=== PATIENT | female | born 1945 | race Caucasian/White ===

== ENCOUNTER 2025-02-26 15:53 | Inpatient (IN) | payer OTHER, MEDICAID ==
[2025-02-26 18:59] LABS: #Basophils Less than 0.03 10x3/uL (0.0-0.2); #Eosinophils Less than 0.03 10x3/uL (0.0-0.5); #Monocytes 0.46 10x3/uL (0.0-1.1); #Neutrophils 6.29 10x3/uL (1.5-8.4); %Basophils 0.2 % (0.0-2.0); %Eosinophils 0.1 % (0.0-6.0); %Lymphocytes 18.9 % (18.0-47.0); %Monocytes 5.5 % (0.0-10.0); %Neutrophils 74.8 % (40.0-75.0); Hematocrit 31.1 % (34.9-44.5); Hemoglobin 10.7 g/dL (12.0-15.5); Mean Corpuscular Hemoglobin 30.1 pg (27.0-33.0); Mean Corpuscular Volume 87.6 fL (81.6-98.3); Platelet Count 252 10x3/uL (150-450); Red Blood Cell (RBC) Count 3.55 10x6/uL (3.90-5.03); White Blood Cell (WBC) Count 8.41 10x3/uL (3.5-10.5)
[2025-02-26] MEDS: Ondansetron PF 4 MG/2 ML Vial ONE (19:00)
[2025-02-26] MEDS ORDERED: Acetaminophen 325 MG TAB PO PRN (19:04)
[2025-02-26 19:12] LABS: ALT (SGPT) Less than 7 U/L (Less than 34); AST (SGOT) 12 U/L (11-34); Albumin 3.2 g/dL (3.1-4.5); Alkaline Phosphatase 63 U/L (40-110); Anion Gap 15 mmol/L (10-20); BUN (Urea Nitrogen) 9 mg/dL (9.8-20.1); Bilirubin, Total 1.1 mg/dL (0.3-1.2); Calc. Creatinine Clearance 0 mL/min (70-130); Calcium 8.3 mg/dL (7.8-10.44); Carbon Dioxide 22 mmol/L (23-31); Chloride 103 mmol/L (98-107); Globulin 2.7 g/dL (2.4-3.5); Glucose 194 mg/dL (83-110); Magnesium 1.8 mg/dL (1.6-2.6); Sodium 138 mmol/L (136-145)
[2025-02-26 19:18] LABS: Troponin I 0.036 ng/mL (< 0.028)
[2025-02-26] MEDS: Magnesium 2 GM/50 ML(in water) 2 GM in Premix 1 BAG IVPB SCH (19:20)
[2025-02-26] MEDS: Potassium Chloride 10 MEQ in Premix 1 BAG IVPB SCH (19:30)
[2025-02-26 19:48] LABS: Potassium 2.3 mmol/L (3.5-5.1)
[2025-02-26] MEDS ORDERED: Famotidine/PF 20 mg/2ml Vial SLOW IVP PRN (21:00)
[2025-02-26] MEDS: Potassium Chloride 20 MEQ in Premix 1 BAG IVPB SCH (21:04)
[2025-02-26] MEDS: Mupirocin 1 GM TUBE TP SCH (21:04)
[2025-02-26] MEDS: Ondansetron PF 4 MG/2 ML Vial IVP PRN (21:05)
[2025-02-26] MEDS: Famotidine 20 MG TAB PO SCH (21:07)
[2025-02-27 01:49] LABS: Anion Gap 13 mmol/L (10-20); BUN (Urea Nitrogen) 8 mg/dL (9.8-20.1); Calc. Creatinine Clearance 68 mL/min (70-130); Calcium 8.5 mg/dL (7.8-10.44); Carbon Dioxide 25 mmol/L (23-31); Chloride 103 mmol/L (98-107); Glucose 145 mg/dL (83-110); Magnesium 2.5 mg/dL (1.6-2.6); Potassium 2.8 mmol/L (3.5-5.1); Sodium 138 mmol/L (136-145)
[2025-02-27] MEDS: Potassium Chloride 20 MEQ in Premix 1 BAG IVPB SCH (01:58)
[2025-02-27 05:21] LABS: #Basophils Less than 0.03 10x3/uL (0.0-0.2); #Eosinophils Less than 0.03 10x3/uL (0.0-0.5); #Monocytes 0.46 10x3/uL (0.0-1.1); #Neutrophils 5.66 10x3/uL (1.5-8.4); %Basophils 0.1 % (0.0-2.0); %Eosinophils 0.1 % (0.0-6.0); %Lymphocytes 22.1 % (18.0-47.0); %Monocytes 5.8 % (0.0-10.0); %Neutrophils 71.4 % (40.0-75.0); Hematocrit 31.1 % (34.9-44.5); Hemoglobin 10.6 g/dL (12.0-15.5); Mean Corpuscular Hemoglobin 30.8 pg (27.0-33.0); Mean Corpuscular Volume 90.4 fL (81.6-98.3); Platelet Count 216 10x3/uL (150-450); Red Blood Cell (RBC) Count 3.44 10x6/uL (3.90-5.03); White Blood Cell (WBC) Count 7.93 10x3/uL (3.5-10.5)
[2025-02-27 05:35] LABS: ALT (SGPT) Less than 7 U/L (Less than 34); AST (SGOT) 11 U/L (11-34); Albumin 3.1 g/dL (3.1-4.5); Alkaline Phosphatase 61 U/L (40-110); Anion Gap 10 mmol/L (10-20); BUN (Urea Nitrogen) 8 mg/dL (9.8-20.1); Bilirubin, Total 0.6 mg/dL (0.3-1.2); Calc. Creatinine Clearance 69 mL/min (70-130); Calcium 8.4 mg/dL (7.8-10.44); Carbon Dioxide 26 mmol/L (23-31); Chloride 105 mmol/L (98-107); Globulin 2.6 g/dL (2.4-3.5); Glucose 125 mg/dL (83-110); Potassium 3.3 mmol/L (3.5-5.1); Sodium 138 mmol/L (136-145)
[2025-02-27] MEDS: Enoxaparin 40 MG (0.4 mL) SYRINGE SC SCH (09:23)
[2025-02-27] MEDS: Spironolactone 25 MG TAB PO SCH (13:50)
[2025-02-27] MEDS: Magnesium 2 GM/50 ML(in water) 2 GM in Premix 1 BAG IVPB SCH (13:50)
[2025-02-27] MEDS: Mirtazapine 15 MG TAB PO SCH (21:25)
[2025-02-28 03:24] LABS: #Basophils Less than 0.03 10x3/uL (0.0-0.2); #Eosinophils 0.06 10x3/uL (0.0-0.5); #Monocytes 0.44 10x3/uL (0.0-1.1); #Neutrophils 4.64 10x3/uL (1.5-8.4); %Basophils 0.3 % (0.0-2.0); %Eosinophils 0.9 % (0.0-6.0); %Lymphocytes 24.3 % (18.0-47.0); %Monocytes 6.4 % (0.0-10.0); %Neutrophils 67.7 % (40.0-75.0); Hematocrit 32.6 % (34.9-44.5); Hemoglobin 10.8 g/dL (12.0-15.5); Mean Corpuscular Hemoglobin 30.7 pg (27.0-33.0); Mean Corpuscular Volume 92.6 fL (81.6-98.3); Platelet Count 230 10x3/uL (150-450); Red Blood Cell (RBC) Count 3.52 10x6/uL (3.90-5.03); White Blood Cell (WBC) Count 6.86 10x3/uL (3.5-10.5)
[2025-02-28 04:19] LABS: Anion Gap 12 mmol/L (10-20); BUN (Urea Nitrogen) 7 mg/dL (9.8-20.1); Calc. Creatinine Clearance 77 mL/min (70-130); Calcium 8.5 mg/dL (7.8-10.44); Carbon Dioxide 28 mmol/L (23-31); Chloride 104 mmol/L (98-107); Glucose 114 mg/dL (83-110); Magnesium 2.2 mg/dL (1.6-2.6); Potassium 2.9 mmol/L (3.5-5.1); Sodium 141 mmol/L (136-145)
[2025-02-28] MEDS: Potassium Chloride 20 MEQ in Premix 1 BAG IVPB SCH (04:43)
[2025-02-28] MEDS: Spironolactone 25 MG TAB PO SCH (09:41)
[2025-02-28 15:59] LABS: Potassium 3.6 mmol/L (3.5-5.1)
[2025-02-28 16:26] LABS: Free T4 (Free Thyroxine) 1.34 ng/dL (0.70-1.48); Thyroid Stimulating Hormone 0.8024 uIU/mL (0.35-4.94)
[2025-03-01 04:41] LABS: #Basophils Less than 0.03 10x3/uL (0.0-0.2); #Eosinophils 0.09 10x3/uL (0.0-0.5); #Monocytes 0.40 10x3/uL (0.0-1.1); #Neutrophils 3.77 10x3/uL (1.5-8.4); %Basophils 0.3 % (0.0-2.0); %Eosinophils 1.4 % (0.0-6.0); %Lymphocytes 31.4 % (18.0-47.0); %Monocytes 6.4 % (0.0-10.0); %Neutrophils 60.2 % (40.0-75.0); Hematocrit 34.8 % (34.9-44.5); Hemoglobin 11.1 g/dL (12.0-15.5); Mean Corpuscular Hemoglobin 30.3 pg (27.0-33.0); Mean Corpuscular Volume 95.1 fL (81.6-98.3); Platelet Count 193 10x3/uL (150-450); Red Blood Cell (RBC) Count 3.66 10x6/uL (3.90-5.03); White Blood Cell (WBC) Count 6.27 10x3/uL (3.5-10.5)
[2025-03-01 04:55] LABS: Anion Gap 10 mmol/L (10-20); BUN (Urea Nitrogen) 8 mg/dL (9.8-20.1); Calc. Creatinine Clearance 61 mL/min (70-130); Calcium 8.6 mg/dL (7.8-10.44); Carbon Dioxide 27 mmol/L (23-31); Chloride 106 mmol/L (98-107); Glucose 118 mg/dL (83-110); Potassium 3.9 mmol/L (3.5-5.1); Sodium 139 mmol/L (136-145)
[2025-03-01 07:58] LABS: Magnesium 1.8 mg/dL (1.6-2.6)
[2025-03-01] MEDS: Magnesium 2 GM/50 ML(in water) 2 GM in Premix 1 BAG IVPB SCH (09:10)
[2025-03-01] MEDS: Potassium Chloride 10 MEQ in Premix 1 BAG IVPB SCH (09:16)
[2025-03-01] MEDS: Carvedilol 6.25 MG TAB PO SCH (15:55)
[2025-03-01] MEDS: Losartan 25 MG TAB PO SCH (15:55)
[2025-03-02] MEDS ORDERED: Mag-Al Plus 1200/1200/120 MG (30 mL) UDCUP PO PRN (03:41)
[2025-03-02] MEDS: Scopolamine 1 mg/72 hour Patch TD SCH (04:22)
[2025-03-02 06:00] LABS: #Basophils 0.03 10x3/uL (0.0-0.2); #Eosinophils 0.12 10x3/uL (0.0-0.5); #Monocytes 0.45 10x3/uL (0.0-1.1); #Neutrophils 4.94 10x3/uL (1.5-8.4); %Basophils 0.4 % (0.0-2.0); %Eosinophils 1.7 % (0.0-6.0); %Lymphocytes 22.1 % (18.0-47.0); %Monocytes 6.3 % (0.0-10.0); %Neutrophils 69.2 % (40.0-75.0); Hematocrit 36.5 % (34.9-44.5); Hemoglobin 11.8 g/dL (12.0-15.5); Mean Corpuscular Hemoglobin 30.6 pg (27.0-33.0); Mean Corpuscular Volume 94.8 fL (81.6-98.3); Platelet Count 209 10x3/uL (150-450); Red Blood Cell (RBC) Count 3.85 10x6/uL (3.90-5.03); White Blood Cell (WBC) Count 7.14 10x3/uL (3.5-10.5)
[2025-03-02 06:20] LABS: Anion Gap 13 mmol/L (10-20); BUN (Urea Nitrogen) 9 mg/dL (9.8-20.1); Calc. Creatinine Clearance 58 mL/min (70-130); Calcium 9.1 mg/dL (7.8-10.44); Carbon Dioxide 24 mmol/L (23-31); Chloride 103 mmol/L (98-107); Glucose 124 mg/dL (83-110); Magnesium 1.9 mg/dL (1.6-2.6); Potassium 5.1 mmol/L (3.5-5.1); Sodium 135 mmol/L (136-145)
[2025-03-02] MEDS: Magnesium 2 GM/50 ML(in water) 2 GM in Premix 1 BAG IVPB SCH (08:47)
[2025-03-02] MEDS: Losartan 25 MG TAB PO SCH (08:49)
[2025-03-03 05:55] LABS: Anion Gap 11 mmol/L (10-20); BUN (Urea Nitrogen) 12 mg/dL (9.8-20.1); Calc. Creatinine Clearance 59 mL/min (70-130); Calcium 9.1 mg/dL (7.8-10.44); Carbon Dioxide 28 mmol/L (23-31); Chloride 100 mmol/L (98-107); Glucose 130 mg/dL (83-110); Iron 52 ug/dL (50-170); Iron Binding Capacity, Total 215 mcg/dL (265-497); Iron Binding Capacity, Total 216 mcg/dL (265-497); Magnesium 2.1 mg/dL (1.6-2.6); Potassium 4.2 mmol/L (3.5-5.1); Sodium 135 mmol/L (136-145)
[2025-03-03] MEDS: Promethazine HCl 25 MG, Admixture Fee 1 EACH in Sodium Chloride 0.9% 50 ML IVPB PRN ×2 (09:48→16:34)
[2025-03-03] MEDS: Sacubitril 24MG/Valsartan 26 MG TAB PO SCH (21:18)
[2025-03-04 05:40] LABS: #Basophils Less than 0.03 10x3/uL (0.0-0.2); #Eosinophils 0.08 10x3/uL (0.0-0.5); #Monocytes 0.35 10x3/uL (0.0-1.1); #Neutrophils 3.78 10x3/uL (1.5-8.4); %Basophils 0.3 % (0.0-2.0); %Eosinophils 1.4 % (0.0-6.0); %Lymphocytes 25.9 % (18.0-47.0); %Monocytes 6.1 % (0.0-10.0); %Neutrophils 66.1 % (40.0-75.0); Hematocrit 37.8 % (34.9-44.5); Hemoglobin 12.4 g/dL (12.0-15.5); Mean Corpuscular Hemoglobin 30.7 pg (27.0-33.0); Mean Corpuscular Volume 93.6 fL (81.6-98.3); Platelet Count 199 10x3/uL (150-450); Red Blood Cell (RBC) Count 4.04 10x6/uL (3.90-5.03); White Blood Cell (WBC) Count 5.72 10x3/uL (3.5-10.5)
[2025-03-04 05:56] LABS: ALT (SGPT) 12 U/L (Less than 34); AST (SGOT) 19 U/L (11-34); Albumin 3.4 g/dL (3.1-4.5); Alkaline Phosphatase 66 U/L (40-110); Anion Gap 13 mmol/L (10-20); BUN (Urea Nitrogen) 13 mg/dL (9.8-20.1); Bilirubin, Total 0.6 mg/dL (0.3-1.2); Calc. Creatinine Clearance 60 mL/min (70-130); Calcium 9.1 mg/dL (7.8-10.44); Carbon Dioxide 26 mmol/L (23-31); Chloride 101 mmol/L (98-107); Globulin 2.6 g/dL (2.4-3.5); Glucose 114 mg/dL (83-110); Magnesium 1.9 mg/dL (1.6-2.6); Potassium 4.3 mmol/L (3.5-5.1); Sodium 136 mmol/L (136-145)
[2025-03-04] MEDS ORDERED: cloNIDine 0.1 MG TAB PO PRN (11:33)
[2025-03-04] MEDS: cloNIDine 0.1 MG TAB PO SCH (11:52)
[2025-03-05 03:49] LABS: #Basophils Less than 0.03 10x3/uL (0.0-0.2); #Eosinophils 0.11 10x3/uL (0.0-0.5); #Monocytes 0.40 10x3/uL (0.0-1.1); #Neutrophils 4.08 10x3/uL (1.5-8.4); %Basophils 0.3 % (0.0-2.0); %Eosinophils 1.7 % (0.0-6.0); %Lymphocytes 28.2 % (18.0-47.0); %Monocytes 6.2 % (0.0-10.0); %Neutrophils 63.3 % (40.0-75.0); Hematocrit 37.2 % (34.9-44.5); Hemoglobin 12.0 g/dL (12.0-15.5); Mean Corpuscular Hemoglobin 30.2 pg (27.0-33.0); Mean Corpuscular Volume 93.7 fL (81.6-98.3); Platelet Count 217 10x3/uL (150-450); Red Blood Cell (RBC) Count 3.97 10x6/uL (3.90-5.03); White Blood Cell (WBC) Count 6.45 10x3/uL (3.5-10.5)
[2025-03-05 04:10] LABS: ALT (SGPT) 17 U/L (Less than 34); AST (SGOT) 23 U/L (11-34); Albumin 3.3 g/dL (3.1-4.5); Alkaline Phosphatase 64 U/L (40-110); Anion Gap 15 mmol/L (10-20); BUN (Urea Nitrogen) 15 mg/dL (9.8-20.1); Bilirubin, Total 0.6 mg/dL (0.3-1.2); Calc. Creatinine Clearance 57 mL/min (70-130); Calcium 9.2 mg/dL (7.8-10.44); Carbon Dioxide 24 mmol/L (23-31); Chloride 101 mmol/L (98-107); Globulin 2.8 g/dL (2.4-3.5); Glucose 125 mg/dL (83-110); Magnesium 1.7 mg/dL (1.6-2.6); Potassium 4.8 mmol/L (3.5-5.1); Sodium 135 mmol/L (136-145)
[2025-03-06 03:21] LABS: #Basophils Less than 0.03 10x3/uL (0.0-0.2); #Eosinophils 0.10 10x3/uL (0.0-0.5); #Monocytes 0.42 10x3/uL (0.0-1.1); #Neutrophils 3.61 10x3/uL (1.5-8.4); %Basophils 0.3 % (0.0-2.0); %Eosinophils 1.7 % (0.0-6.0); %Lymphocytes 30.8 % (18.0-47.0); %Monocytes 7.0 % (0.0-10.0); %Neutrophils 59.9 % (40.0-75.0); Hematocrit 35.3 % (34.9-44.5); Hemoglobin 11.6 g/dL (12.0-15.5); Mean Corpuscular Hemoglobin 30.7 pg (27.0-33.0); Mean Corpuscular Volume 93.4 fL (81.6-98.3); Platelet Count 203 10x3/uL (150-450); Red Blood Cell (RBC) Count 3.78 10x6/uL (3.90-5.03); White Blood Cell (WBC) Count 6.03 10x3/uL (3.5-10.5)
[2025-03-06 04:45] LABS: ALT (SGPT) 19 U/L (Less than 34); AST (SGOT) 25 U/L (11-34); Albumin 3.3 g/dL (3.1-4.5); Alkaline Phosphatase 63 U/L (40-110); Anion Gap 18 mmol/L (10-20); BUN (Urea Nitrogen) 16 mg/dL (9.8-20.1); Bilirubin, Total 0.6 mg/dL (0.3-1.2); Calc. Creatinine Clearance 62 mL/min (70-130); Calcium 9.0 mg/dL (7.8-10.44); Carbon Dioxide 22 mmol/L (23-31); Chloride 99 mmol/L (98-107); Globulin 2.6 g/dL (2.4-3.5); Glucose 107 mg/dL (83-110); Magnesium 1.7 mg/dL (1.6-2.6); Potassium 3.7 mmol/L (3.5-5.1); Sodium 135 mmol/L (136-145)
[2025-03-07 06:12] LABS: #Basophils 0.03 10x3/uL (0.0-0.2); #Eosinophils 0.08 10x3/uL (0.0-0.5); #Monocytes 0.42 10x3/uL (0.0-1.1); #Neutrophils 4.05 10x3/uL (1.5-8.4); %Basophils 0.4 % (0.0-2.0); %Eosinophils 1.2 % (0.0-6.0); %Lymphocytes 32.9 % (18.0-47.0); %Monocytes 6.1 % (0.0-10.0); %Neutrophils 59.0 % (40.0-75.0); Hematocrit 35.7 % (34.9-44.5); Hemoglobin 11.8 g/dL (12.0-15.5); Mean Corpuscular Hemoglobin 30.4 pg (27.0-33.0); Mean Corpuscular Volume 92.0 fL (81.6-98.3); Platelet Count 260 10x3/uL (150-450); Red Blood Cell (RBC) Count 3.88 10x6/uL (3.90-5.03); White Blood Cell (WBC) Count 6.87 10x3/uL (3.5-10.5)
[2025-03-07 06:40] LABS: ALT (SGPT) 22 U/L (Less than 34); AST (SGOT) 26 U/L (11-34); Albumin 3.4 g/dL (3.1-4.5); Alkaline Phosphatase 65 U/L (40-110); Anion Gap 17 mmol/L (10-20); BUN (Urea Nitrogen) 20 mg/dL (9.8-20.1); Bilirubin, Total 0.6 mg/dL (0.3-1.2); Calc. Creatinine Clearance 48 mL/min (70-130); Calcium 9.2 mg/dL (7.8-10.44); Carbon Dioxide 23 mmol/L (23-31); Chloride 97 mmol/L (98-107); Globulin 2.7 g/dL (2.4-3.5); Glucose 111 mg/dL (83-110); Magnesium 1.7 mg/dL (1.6-2.6); Potassium 4.1 mmol/L (3.5-5.1); Sodium 133 mmol/L (136-145)
[2025-03-08 04:44] LABS: #Basophils Less than 0.03 10x3/uL (0.0-0.2); #Eosinophils 0.06 10x3/uL (0.0-0.5); #Monocytes 0.49 10x3/uL (0.0-1.1); #Neutrophils 3.92 10x3/uL (1.5-8.4); %Basophils 0.3 % (0.0-2.0); %Eosinophils 1.0 % (0.0-6.0); %Lymphocytes 26.3 % (18.0-47.0); %Monocytes 8.0 % (0.0-10.0); %Neutrophils 63.9 % (40.0-75.0); Hematocrit 32.3 % (34.9-44.5); Hemoglobin 10.6 g/dL (12.0-15.5); Mean Corpuscular Hemoglobin 30.3 pg (27.0-33.0); Mean Corpuscular Volume 92.3 fL (81.6-98.3); Platelet Count 164 10x3/uL (150-450); Red Blood Cell (RBC) Count 3.50 10x6/uL (3.90-5.03); White Blood Cell (WBC) Count 6.13 10x3/uL (3.5-10.5)
[2025-03-08 05:12] LABS: ALT (SGPT) 16 U/L (Less than 34); AST (SGOT) 17 U/L (11-34); Albumin 3.0 g/dL (3.1-4.5); Alkaline Phosphatase 55 U/L (40-110); Anion Gap 14 mmol/L (10-20); BUN (Urea Nitrogen) 17 mg/dL (9.8-20.1); Bilirubin, Total 0.5 mg/dL (0.3-1.2); Calc. Creatinine Clearance 60 mL/min (70-130); Calcium 8.6 mg/dL (7.8-10.44); Carbon Dioxide 22 mmol/L (23-31); Chloride 101 mmol/L (98-107); Globulin 2.3 g/dL (2.4-3.5); Glucose 102 mg/dL (83-110); Potassium 3.4 mmol/L (3.5-5.1); Sodium 134 mmol/L (136-145)
[2025-03-08 14:07] VITALS: BMI 21.8
[2025-03-08] MEDS ORDERED: Electrolyte Replacement Protocol 1 EACH FS PRN (14:45)
[2025-03-08] MEDS: Magnesium 2 GM/50 ML(in water) 2 GM in Premix 1 BAG IVPB SCH (17:01)
[2025-03-08 20:45] LABS: Potassium 3.6 mmol/L (3.5-5.1)
[2025-03-09 04:52] LABS: #Basophils Less than 0.03 10x3/uL (0.0-0.2); #Eosinophils 0.08 10x3/uL (0.0-0.5); #Monocytes 0.40 10x3/uL (0.0-1.1); #Neutrophils 4.05 10x3/uL (1.5-8.4); %Basophils 0.3 % (0.0-2.0); %Eosinophils 1.3 % (0.0-6.0); %Lymphocytes 23.4 % (18.0-47.0); %Monocytes 6.7 % (0.0-10.0); %Neutrophils 68.1 % (40.0-75.0); Hematocrit 33.1 % (34.9-44.5); Hemoglobin 11.0 g/dL (12.0-15.5); Mean Corpuscular Hemoglobin 30.7 pg (27.0-33.0); Mean Corpuscular Volume 92.5 fL (81.6-98.3); Platelet Count 188 10x3/uL (150-450); Red Blood Cell (RBC) Count 3.58 10x6/uL (3.90-5.03); White Blood Cell (WBC) Count 5.95 10x3/uL (3.5-10.5)
[2025-03-09 05:10] LABS: ALT (SGPT) 13 U/L (Less than 34); AST (SGOT) 16 U/L (11-34); Albumin 3.2 g/dL (3.1-4.5); Alkaline Phosphatase 59 U/L (40-110); Anion Gap 12 mmol/L (10-20); BUN (Urea Nitrogen) 12 mg/dL (9.8-20.1); Bilirubin, Total 0.5 mg/dL (0.3-1.2); Calc. Creatinine Clearance 64 mL/min (70-130); Calcium 8.6 mg/dL (7.8-10.44); Carbon Dioxide 23 mmol/L (23-31); Chloride 100 mmol/L (98-107); Globulin 2.4 g/dL (2.4-3.5); Glucose 104 mg/dL (83-110); Magnesium 2.1 mg/dL (1.6-2.6); Potassium 3.9 mmol/L (3.5-5.1); Sodium 131 mmol/L (136-145)
[2025-03-10 05:23] LABS: #Basophils Less than 0.03 10x3/uL (0.0-0.2); #Eosinophils 0.13 10x3/uL (0.0-0.5); #Monocytes 0.40 10x3/uL (0.0-1.1); #Neutrophils 4.35 10x3/uL (1.5-8.4); %Basophils 0.3 % (0.0-2.0); %Eosinophils 1.9 % (0.0-6.0); %Lymphocytes 26.7 % (18.0-47.0); %Monocytes 6.0 % (0.0-10.0); %Neutrophils 64.8 % (40.0-75.0); Hematocrit 33.3 % (34.9-44.5); Hemoglobin 10.7 g/dL (12.0-15.5); Mean Corpuscular Hemoglobin 30.1 pg (27.0-33.0); Mean Corpuscular Volume 93.5 fL (81.6-98.3); Platelet Count 179 10x3/uL (150-450); Red Blood Cell (RBC) Count 3.56 10x6/uL (3.90-5.03); White Blood Cell (WBC) Count 6.71 10x3/uL (3.5-10.5)
[2025-03-10 05:37] LABS: ALT (SGPT) 12 U/L (Less than 34); AST (SGOT) 14 U/L (11-34); Albumin 3.1 g/dL (3.1-4.5); Alkaline Phosphatase 56 U/L (40-110); Anion Gap 14 mmol/L (10-20); BUN (Urea Nitrogen) 14 mg/dL (9.8-20.1); Bilirubin, Total 0.5 mg/dL (0.3-1.2); Calc. Creatinine Clearance 64 mL/min (70-130); Calcium 8.7 mg/dL (7.8-10.44); Carbon Dioxide 23 mmol/L (23-31); Chloride 100 mmol/L (98-107); Globulin 2.4 g/dL (2.4-3.5); Glucose 111 mg/dL (83-110); Potassium 3.8 mmol/L (3.5-5.1); Sodium 133 mmol/L (136-145)
[2025-03-10] MEDS: Magnesium Oxide 400 MG TAB PO SCH (09:34)
[2025-03-10 17:05] LABS: Magnesium 1.9 mg/dL (1.6-2.6)
[2025-03-10] MEDS: Magnesium 2 GM/50 ML(in water) 2 GM in Premix 1 BAG IVPB SCH (21:05)
[2025-03-11 05:41] LABS: #Basophils 0.04 10x3/uL (0.0-0.2); #Eosinophils 0.12 10x3/uL (0.0-0.5); #Monocytes 0.32 10x3/uL (0.0-1.1); #Neutrophils 3.10 10x3/uL (1.5-8.4); %Basophils 0.7 % (0.0-2.0); %Eosinophils 2.2 % (0.0-6.0); %Lymphocytes 32.8 % (18.0-47.0); %Monocytes 6.0 % (0.0-10.0); %Neutrophils 58.1 % (40.0-75.0); Hematocrit 33.4 % (34.9-44.5); Hemoglobin 10.8 g/dL (12.0-15.5); Mean Corpuscular Hemoglobin 30.3 pg (27.0-33.0); Mean Corpuscular Volume 93.6 fL (81.6-98.3); Platelet Count 159 10x3/uL (150-450); Red Blood Cell (RBC) Count 3.57 10x6/uL (3.90-5.03); White Blood Cell (WBC) Count 5.34 10x3/uL (3.5-10.5)
[2025-03-11 05:56] LABS: Anion Gap 13 mmol/L (10-20); BUN (Urea Nitrogen) 11 mg/dL (9.8-20.1); Calc. Creatinine Clearance 60 mL/min (70-130); Calcium 8.9 mg/dL (7.8-10.44); Carbon Dioxide 26 mmol/L (23-31); Chloride 100 mmol/L (98-107); Glucose 115 mg/dL (83-110); Magnesium 2.1 mg/dL (1.6-2.6); Potassium 5.1 mmol/L (3.5-5.1); Sodium 134 mmol/L (136-145)
[2025-03-11 06:27] VITALS: BMI 21.8
[2025-03-11] MEDS: Ondansetron PF 4 MG/2 ML Vial IVP PRN (13:36)
[2025-03-11 16:21] LABS: Magnesium 1.9 mg/dL (1.6-2.6)
[2025-03-11] MEDS: Ondansetron PF 4 MG/2 ML Vial IVP SCH (17:12)
[2025-03-11] MEDS: Magnesium 2 GM/50 ML(in water) 2 GM in Premix 1 BAG IVPB SCH (17:13)
[2025-03-11] MEDS: Sacubitril 24MG/Valsartan 26 MG TAB PO SCH (21:06)
[2025-03-12 05:01] LABS: #Basophils Less than 0.03 10x3/uL (0.0-0.2); #Eosinophils 0.11 10x3/uL (0.0-0.5); #Monocytes 0.37 10x3/uL (0.0-1.1); #Neutrophils 3.13 10x3/uL (1.5-8.4); %Basophils 0.4 % (0.0-2.0); %Eosinophils 2.0 % (0.0-6.0); %Lymphocytes 33.3 % (18.0-47.0); %Monocytes 6.8 % (0.0-10.0); %Neutrophils 57.3 % (40.0-75.0); Hematocrit 33.3 % (34.9-44.5); Hemoglobin 11.0 g/dL (12.0-15.5); Mean Corpuscular Hemoglobin 30.6 pg (27.0-33.0); Mean Corpuscular Volume 92.8 fL (81.6-98.3); Platelet Count 160 10x3/uL (150-450); Red Blood Cell (RBC) Count 3.59 10x6/uL (3.90-5.03); White Blood Cell (WBC) Count 5.46 10x3/uL (3.5-10.5)
[2025-03-12 05:20] LABS: Anion Gap 10 mmol/L (10-20); BUN (Urea Nitrogen) 9 mg/dL (9.8-20.1); Calc. Creatinine Clearance 53 mL/min (70-130); Calcium 8.7 mg/dL (7.8-10.44); Carbon Dioxide 25 mmol/L (23-31); Chloride 99 mmol/L (98-107); Glucose 132 mg/dL (83-110); Magnesium 2.3 mg/dL (1.6-2.6); Potassium 4.3 mmol/L (3.5-5.1); Sodium 130 mmol/L (136-145)
[2025-03-12] MEDS: Mirtazapine 15 MG TAB PO SCH (11:28)
[2025-03-13 05:03] LABS: #Basophils 0.03 10x3/uL (0.0-0.2); #Eosinophils 0.09 10x3/uL (0.0-0.5); #Monocytes 0.39 10x3/uL (0.0-1.1); #Neutrophils 3.70 10x3/uL (1.5-8.4); %Basophils 0.5 % (0.0-2.0); %Eosinophils 1.5 % (0.0-6.0); %Lymphocytes 30.0 % (18.0-47.0); %Monocytes 6.5 % (0.0-10.0); %Neutrophils 61.3 % (40.0-75.0); Hematocrit 32.9 % (34.9-44.5); Hemoglobin 10.8 g/dL (12.0-15.5); Mean Corpuscular Hemoglobin 30.4 pg (27.0-33.0); Mean Corpuscular Volume 92.7 fL (81.6-98.3); Platelet Count 146 10x3/uL (150-450); Red Blood Cell (RBC) Count 3.55 10x6/uL (3.90-5.03); White Blood Cell (WBC) Count 6.03 10x3/uL (3.5-10.5)
[2025-03-13 05:18] LABS: Anion Gap 11 mmol/L (10-20); BUN (Urea Nitrogen) 8 mg/dL (9.8-20.1); Calc. Creatinine Clearance 62 mL/min (70-130); Calcium 8.8 mg/dL (7.8-10.44); Carbon Dioxide 24 mmol/L (23-31); Chloride 103 mmol/L (98-107); Glucose 104 mg/dL (83-110); Potassium 4.3 mmol/L (3.5-5.1); Sodium 134 mmol/L (136-145)
[2025-03-13] MEDS: Mirtazapine 15 MG TAB PO SCH (14:08)
[2025-03-13 14:11] LABS: Magnesium 1.8 mg/dL (1.6-2.6)
[2025-03-13] MEDS: Magnesium 2 GM/50 ML(in water) 2 GM in Premix 1 BAG IVPB SCH (16:32)
[2025-03-14 04:02] LABS: #Basophils Less than 0.03 10x3/uL (0.0-0.2); #Eosinophils 0.11 10x3/uL (0.0-0.5); #Monocytes 0.32 10x3/uL (0.0-1.1); #Neutrophils 3.18 10x3/uL (1.5-8.4); %Basophils 0.4 % (0.0-2.0); %Eosinophils 2.1 % (0.0-6.0); %Lymphocytes 28.9 % (18.0-47.0); %Monocytes 6.3 % (0.0-10.0); %Neutrophils 62.1 % (40.0-75.0); Hematocrit 32.9 % (34.9-44.5); Hemoglobin 10.7 g/dL (12.0-15.5); Mean Corpuscular Hemoglobin 30.6 pg (27.0-33.0); Mean Corpuscular Volume 94.0 fL (81.6-98.3); Platelet Count 130 10x3/uL (150-450); Red Blood Cell (RBC) Count 3.50 10x6/uL (3.90-5.03); White Blood Cell (WBC) Count 5.12 10x3/uL (3.5-10.5)
[2025-03-14 04:13] LABS: Anion Gap 13 mmol/L (10-20); BUN (Urea Nitrogen) 7 mg/dL (9.8-20.1); Calc. Creatinine Clearance 69 mL/min (70-130); Calcium 8.4 mg/dL (7.8-10.44); Carbon Dioxide 20 mmol/L (23-31); Chloride 104 mmol/L (98-107); Glucose 88 mg/dL (83-110); Magnesium 2.3 mg/dL (1.6-2.6); Potassium 4.3 mmol/L (3.5-5.1); Sodium 133 mmol/L (136-145)
[2025-03-15 03:41] LABS: #Basophils Less than 0.03 10x3/uL (0.0-0.2); #Eosinophils 0.12 10x3/uL (0.0-0.5); #Monocytes 0.38 10x3/uL (0.0-1.1); #Neutrophils 2.76 10x3/uL (1.5-8.4); %Basophils 0.4 % (0.0-2.0); %Eosinophils 2.6 % (0.0-6.0); %Lymphocytes 29.7 % (18.0-47.0); %Monocytes 8.1 % (0.0-10.0); %Neutrophils 59.0 % (40.0-75.0); Hematocrit 34.2 % (34.9-44.5); Hemoglobin 11.0 g/dL (12.0-15.5); Mean Corpuscular Hemoglobin 30.1 pg (27.0-33.0); Mean Corpuscular Volume 93.4 fL (81.6-98.3); Platelet Count 134 10x3/uL (150-450); Red Blood Cell (RBC) Count 3.66 10x6/uL (3.90-5.03); White Blood Cell (WBC) Count 4.68 10x3/uL (3.5-10.5)
[2025-03-15 03:55] LABS: Anion Gap 9 mmol/L (10-20); BUN (Urea Nitrogen) 6 mg/dL (9.8-20.1); Calc. Creatinine Clearance 62 mL/min (70-130); Calcium 8.7 mg/dL (7.8-10.44); Carbon Dioxide 26 mmol/L (23-31); Chloride 103 mmol/L (98-107); Glucose 94 mg/dL (83-110); Potassium 4.4 mmol/L (3.5-5.1); Sodium 134 mmol/L (136-145)
[2025-03-16 05:30] LABS: #Basophils 0.03 10x3/uL (0.0-0.2); #Eosinophils 0.09 10x3/uL (0.0-0.5); #Monocytes 0.32 10x3/uL (0.0-1.1); #Neutrophils 2.76 10x3/uL (1.5-8.4); %Basophils 0.7 % (0.0-2.0); %Eosinophils 2.0 % (0.0-6.0); %Lymphocytes 28.0 % (18.0-47.0); %Monocytes 7.2 % (0.0-10.0); %Neutrophils 61.9 % (40.0-75.0); Hematocrit 31.3 % (34.9-44.5); Hemoglobin 10.4 g/dL (12.0-15.5); Mean Corpuscular Hemoglobin 30.5 pg (27.0-33.0); Mean Corpuscular Volume 91.8 fL (81.6-98.3); Platelet Count 135 10x3/uL (150-450); Red Blood Cell (RBC) Count 3.41 10x6/uL (3.90-5.03); White Blood Cell (WBC) Count 4.46 10x3/uL (3.5-10.5)
[2025-03-16 05:48] LABS: Anion Gap 12 mmol/L (10-20); BUN (Urea Nitrogen) 6 mg/dL (9.8-20.1); Calc. Creatinine Clearance 77 mL/min (70-130); Calcium 8.4 mg/dL (7.8-10.44); Carbon Dioxide 23 mmol/L (23-31); Chloride 104 mmol/L (98-107); Glucose 100 mg/dL (83-110); Potassium 3.3 mmol/L (3.5-5.1); Sodium 136 mmol/L (136-145)
[2025-03-16] MEDS: Magnesium Oxide 400 MG TAB PO SCH (09:21)
[2025-03-16] MEDS: Potassium Chloride 20 MEQ in Premix 1 BAG IVPB SCH (09:22)
[2025-03-16 19:49] VITALS: BP 161/83; TEMP 98.3
== END 2025-03-16 20:10 | DRG 308 ==
LOC: OBSVTOIN 17:29 → CSHICU 17:29 → CSHTELE 03-06 08:04
PROVIDERS: ADMIT Internal Medicine; ATTEND Internal Medicine
PROC: 0T9B70Z Drainage of Bladder with Drainage Device, Via Natural or Artificial Opening (ICD-10-PCS; principal; 2025-02-27)
DX: I47.10 Supraventricular tachycardia, unspecified (principal); E43 Unspecified severe protein-calorie malnutrition; I42.0 Dilated cardiomyopathy; I42.7 Cardiomyopathy due to drug and external agent; R64 Cachexia; I50.22 Chronic systolic (congestive) heart failure; E87.6 Hypokalemia; E83.42 Hypomagnesemia; I11.0 Hypertensive heart disease with heart failure; C50.912 Malignant neoplasm of unspecified site of left female breast; I44.7 Left bundle-branch block, unspecified; I47.21 Torsades de pointes; T45.1X5A Adverse effect of antineoplastic and immunosuppressive drugs, initial encounter; D64.9 Anemia, unspecified; I95.1 Orthostatic hypotension; I45.81 Long QT syndrome; R62.7 Adult failure to thrive; Z88.8 Allergy status to other drugs, medicaments and biological substances; Z68.22 Body mass index [BMI] 22.0-22.9, adult; R11.10 Vomiting, unspecified; R19.7 Diarrhea, unspecified; E78.5 Hyperlipidemia, unspecified; E11.9 Type 2 diabetes mellitus without complications; I47.20 Ventricular tachycardia, unspecified
CPT/HCPCS: 36415; 80048; 80053; 81001; 82728; 83540; 83550; 83605; 83690; 83735; 84100; 84439; 84443; 84484; 85025; 93005; 93010; 93306; 96365; 96375; 97139; J0282; J1650; J2550; J3475; J3480; J7030; J7042; J7120; Q0162; Q0169